=== PATIENT | male | born 1985 | race Caucasian/White ===

== ENCOUNTER 2017-04-01 14:37 | Emergency (ER) | payer OTHER ==
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
[2017-04-01 14:57] VITALS: BP 129/85
[2017-04-01] MEDS ORDERED: Ondansetron 4 MG/2 ML SDV IVPUSH ONE (15:02)
[2017-04-01] MEDS ORDERED: Sodium Chloride 0.9% 10 ML Syringe FLUSH PRN (15:02)
[2017-04-01] MEDS ORDERED: HYDROmorphone 0.5 MG/0.5 ML Syringe IVPUSH ONE (15:02)
--- NOTE | 2017-04-03 20:02 | CR ---
Cervical spine: AP, lateral and odontoid views of the cervical spine were obtained. Comparison: Previous cervical spine radiograph of 09/26/10. Slight disc space narrowing at C6-C7 is seen. Other disc spaces are maintained. Minimal calcification within the annulus is seen anteriorly at C6-C7 which is an interval change from prior exam. Slight scoliosis is noted. No abnormal subluxation. No acute fracture is noted. Plate and screws are identified within the mandible affixing old fracture which appears healed. Impression: 1. Minimal degenerative change within the cervical spine as described above. 2. Orthopedic hardware affixing an old healed mandible fracture. Diagnostic code #2
--- NOTE | 2017-04-03 20:02 | CR ---
Lumbar spine: AP, lateral and coned-down lateral views centered to the lumbosacral junction were obtained. Comparison: No prior lumbar spine study. Severe disc space narrowing noted at L4-L5. L5-S1 disc is not well seen but felt to be slightly narrowed and shows anterior osteophytes. Vertebral body heights are maintained. Pedicles are intact. No subluxation or fracture is seen. Impression: 1. Disc space narrowing at L4-L5 possibly developmental. 2. L5-S1 disc not well seen but felt to be slightly narrowed. Anterior osteophytes are seen at L5-S1. 3. Three-view lumbar spine study is otherwise unremarkable. Diagnostic code #2
--- NOTE | 2017-04-03 20:02 | CR ---
Left foot: Four views of the left foot were obtained. Comparison: No previous foot exam. Joint spaces are preserved. Mild bunion deformity is present. No acute fracture or other bony abnormality is seen. Impression: 1. Mild bunion deformity. 2. No additional abnormality is identified on left foot study. Diagnostic code #2
== END 2017-04-01 17:25 | disposition home or self-care (01) ==
LOC: JD.ED 14:37
DX: M54.5 Low back pain (principal); M54.2 Cervicalgia; M79.672 Pain in left foot; F17.210 Nicotine dependence, cigarettes, uncomplicated; Z88.1 Allergy status to other antibiotic agents; Z88.0 Allergy status to penicillin; Z88.2 Allergy status to sulfonamides; V89.2XXA Person injured in unspecified motor-vehicle accident, traffic, initial encounter; Y92.410 Unspecified street and highway as the place of occurrence of the external cause
CPT/HCPCS: 72040; 72100; 73630; 96374; 96375; 99284; J1170; J2405; J7050; 99285

== ENCOUNTER 2023-01-15 15:36 | Emergency (ER) | payer MEDICAID, OTHER ==
[2023-01-15] MEDS ORDERED: HYDROmorphone 0.5 MG/0.5 ML Syringe IVPUSH ONE (16:14)
[2023-01-15] MEDS ORDERED: Ondansetron 4 MG/2 ML SDV IVPUSH ONE (16:14)
[2023-01-15] MEDS ORDERED: Sodium Chloride 0.9% 10 ML Syringe FLUSH PRN (16:14)
[2023-01-15] MEDS ORDERED: Sodium Chloride 0.9% 1,000 ML IV STA (16:14)
[2023-01-15 17:07] LABS: APPEARANCE,URINE CLEAR (Clear); BILIRUBIN,URINE NEGATIVE (Negative); COLOR,URINE YELLOW (Yellow); GLUCOSE,URINE NEGATIVE (Negative); KETONES,URINE NEGATIVE (Negative); LEUKOCYTE ESTERASE,URINE NEGATIVE (Negative); NITRITE,URINE NEGATIVE (Negative); OCCULT BLOOD,URINE NEGATIVE (Negative); PROTEIN,URINE TRACE (Negative); UROBILINOGEN,URINE 0.2 (0.2-1.0)
[2023-01-15 17:07] LABS: BASOPHILS ABSOLUTE AUTO 0.02 K/mm3 (0.01-0.08); BASOPHILS PERCENT AUTO 0.2 % (0.1-1.2); EOSINOPHILS ABSOLUTE AUTO 0.22 K/mm3 (0.04-0.54); HEMATOCRIT 49.7 % (40.1-51.0); HEMOGLOBIN 16.9 gm/dl (13.7-17.5); IMMATURE GRAN ABSOLUTE AUTO 0.01 K/mm3 (0.00-0.10); IMMATURE GRAN PERCENT AUTO 0.1 % (<=1.0); LYMPHOCYTES ABSOLUTE AUTO 2.01 K/mm3 (1.32-3.57); LYMPHOCYTES PERCENT AUTO 18.7 % (21.8-53.1); MEAN CORPUSCULAR HEMOGLOBIN 28.9 pg (25.7-32.2); MONOCYTES ABSOLUTE AUTO 1.21 K/mm3 (0.30-0.82); MONOCYTES PERCENT AUTO 11.3 % (5.3-12.2); NEUTROPHILS ABSOLUTE AUTO 7.27 K/mm3 (1.78-5.38); NEUTROPHILS PERCENT AUTO 67.7 % (34.0-67.9); PLATELET COUNT,PLT 294 K/mm3 (163-337); RED BLOOD CELL COUNT 5.85 M/mm3 (4.63-6.08); WHITE BLOOD CELL COUNT,WBC 10.74 K/mm3 (4.23-9.07)
[2023-01-15 17:34] LABS: BACTERIA,URINE FEW /hpf (FEW); MUCUS,URINE MODERATE /hpf (FEW); RBC,URINE 0-5 /hpf (0-5); SQUAMOUS EPITHELIAL CELLS,UR NOT SEEN /hpf (0-5); WBC,URINE 0-5 /hpf (0-5)
[2023-01-15 17:35] LABS: A/G RATIO 1.1 (1-2); ALANINE AMINOTRANSFERASE,ALT 34 U/L (16-63); ALBUMIN 4.2 g/dl (3.4-5.0); ALKALINE PHOSPHATASE 73 U/L (46-116); ASPARTATE AMNIOTRANSFERASE,AST 15 U/L (15-37); BILIRUBIN TOTAL 0.4 mg/dL (0.2-1.0); BLOOD UREA NITROGEN,BUN 17 mg/dL (7-18); BUN/CREATININE RATIO 15.5 (14-18); C-REACTIVE PROTEIN <0.2 mg/dL (<1.0); CALCIUM 9.4 mg/dL (8.5-10.1); CARBON DIOXIDE,CO2 27 mEq/L (21-32); CHLORIDE,CL 104 mEq/L (98-107); CREATININE 1.1 mg/dL (0.7-1.3); EST CRCL DRUG DOSING (CG) 107.76 mL/min; ESTIMATED GFR 88 mL/min (>60); GLUCOSE RANDOM 100 mg/dL (70-99); PROTEIN TOTAL,TP 8.2 g/dl (6.4-8.2); SODIUM,NA 140 mEq/L (136-145)
[2023-01-15 18:55] LABS: C. TRACHOMATIS BY PCR NOT DETECTED; N. GONORRHOEAE BY PCR NOT DETECTED
[2023-01-15 20:06] VITALS: BP 128/78; PULSE 74
== END 2023-01-15 20:00 | disposition home or self-care (01) ==
LOC: JD.ED 15:36
DX: R10.9 Unspecified abdominal pain (principal); N50.82 Scrotal pain; Z88.0 Allergy status to penicillin; Z88.1 Allergy status to other antibiotic agents; Z88.2 Allergy status to sulfonamides; Z72.0 Tobacco use
CPT/HCPCS: 36415; 74176; 76870; 80053; 81001; 85025; 86140; 87491; 87591; 93975; 96374; 96375; 99284; J1170; J2405; J3490; J7030

== ENCOUNTER 2023-03-29 14:29 | Emergency (ER) | payer MEDICAID ==
[2023-03-29 16:00] LABS: BASOPHILS PERCENT AUTO 0.3 % (0.0-1.0); EOSINOPHILS ABSOLUTE AUTO 0.3 K/mm3 (0.0-0.4); EOSINOPHILS PERCENT AUTO 2.5 % (0.0-6.0); HEMATOCRIT 43.3 % (42.0-52.0); HEMOGLOBIN 14.6 gm/dl (14.0-18.0); IMMATURE GRAN ABSOLUTE AUTO 0.05 K/mm3 (0.00-0.05); IMMATURE GRAN PERCENT AUTO 0.5 % (0.0-0.4); LYMPHOCYTES ABSOLUTE AUTO 2.6 K/mm3 (1.0-4.8); LYMPHOCYTES PERCENT AUTO 26.2 % (24.0-44.0); MEAN CORPUSCULAR HGB CONC 33.7 g/dl (32.0-36.0); MEAN CORPUSCULAR VOLUME 86.1 fl (83.0-99.0); MEAN PLATELET VOLUME 9.1 fl (9.4-12.4); MONOCYTES ABSOLUTE AUTO 1.2 K/mm3 (0.0-0.8); NEUTROPHILS ABSOLUTE AUTO 5.9 K/mm3 (1.8-7.7); NEUTROPHILS PERCENT AUTO 58.5 % (41.0-71.0); PLATELET COUNT,PLT 243 K/mm3 (150-400); RED BLOOD CELL COUNT 5.03 M/mm3 (4.52-5.90); WHITE BLOOD CELL COUNT,WBC 10.02 K/mm3 (3.9-11.3)
[2023-03-29] MEDS ORDERED: Polyethylene Glycol 3350 Powder 17 GM Packet PO ONE (16:53)
[2023-03-29 19:55] VITALS: BP 138/103; PULSE 75
== END 2023-03-29 17:15 | disposition home or self-care (01) ==
LOC: JD.ED 14:29
DX: K64.9 Unspecified hemorrhoids (principal); K59.00 Constipation, unspecified
CPT/HCPCS: 36415; 51798; 74018; 85025; 99283; A9270; 99282

== ENCOUNTER 2023-06-15 07:01 | Day surgery (SDC) | payer MEDICAID ==
[2023-06-15 07:27] VITALS: BP 136/94; PULSE 84
[2023-06-15] MEDS ORDERED: Bupivacaine 0.5% 30 ML SDV ONE (07:42)
[2023-06-15] MEDS ORDERED: Lactated Ringers 1,000 ML IV SCH (07:45)
[2023-06-15 08:15] LABS: BARBITURATE SCREEN,URINE NEGATIVE (CUTOFF=200); BENZODIAZEPINES SCREEN,URINE NEGATIVE (CUTOFF=150); BUPRENORPHINE SCREEN,URINE NEGATIVE (CUTOFF=10); METHADONE SCREEN, URINE NEGATIVE (CUT0FF=200); METHAMPHETAMINES SCREEN, URINE PRESUMPTIVE POSITIVE (CUTOFF=500); OXYCODONE SCREEN,URINE NEGATIVE (CUT0FF=100); THC SCREEN,URINE 20 NG/ML NEGATIVE (CUTOFF=50)
[2023-06-15 08:17] LABS: AMPHETAMINES SCREEN, URINE PRESUMPTIVE POSITIVE (CUTOFF=500)
== END 2023-06-15 08:25 ==
LOC: JD.SDS 07:01
PROVIDERS: ATTEND Surgery
DX: R10.9 Unspecified abdominal pain (principal); Z53.8 Procedure and treatment not carried out for other reasons; F17.210 Nicotine dependence, cigarettes, uncomplicated; Z88.0 Allergy status to penicillin; Z88.2 Allergy status to sulfonamides; Z88.1 Allergy status to other antibiotic agents
CPT/HCPCS: 80306; J7120; 96360; J0665

== ENCOUNTER 2024-03-03 00:10 | Emergency (ER) | payer SELFPAY ==
[2024-03-03] MEDS ORDERED: Sodium Chloride 0.9% 10 ML Syringe FLUSH PRN (00:26)
[2024-03-03] MEDS: Iopamidol 612 MG/ML 30 ML SDV IVPUSH ONE (00:49)
[2024-03-03 01:08] LABS: BASOPHILS PERCENT AUTO 0.3 % (0.0-1.0); EOSINOPHILS ABSOLUTE AUTO 0.3 K/mm3 (0.0-0.4); EOSINOPHILS PERCENT AUTO 2.9 % (0.0-6.0); HEMATOCRIT 47.7 % (42.0-52.0); IMMATURE GRAN ABSOLUTE AUTO 0.04 K/mm3 (0.00-0.05); IMMATURE GRAN PERCENT AUTO 0.4 % (0.0-0.4); LYMPHOCYTES ABSOLUTE AUTO 2.3 K/mm3 (1.0-4.8); LYMPHOCYTES PERCENT AUTO 23.9 % (24.0-44.0); MEAN CORPUSCULAR HEMOGLOBIN 28.7 pg (28.0-32.0); MEAN CORPUSCULAR HGB CONC 33.5 g/dl (32.0-36.0); MEAN CORPUSCULAR VOLUME 85.6 fl (83.0-99.0); MEAN PLATELET VOLUME 9.3 fl (9.4-12.4); MONOCYTES ABSOLUTE AUTO 1.1 K/mm3 (0.0-0.8); NEUTROPHILS ABSOLUTE AUTO 5.9 K/mm3 (1.8-7.7); NEUTROPHILS PERCENT AUTO 61.5 % (41.0-71.0); PLATELET COUNT,PLT 249 K/mm3 (150-400); RED BLOOD CELL COUNT 5.57 M/mm3 (4.52-5.90); WHITE BLOOD CELL COUNT,WBC 9.54 K/mm3 (3.9-11.3)
[2024-03-03 01:25] LABS: APPEARANCE,URINE CLEAR (Clear); BILIRUBIN,URINE NEGATIVE (Negative); COLOR,URINE YELLOW (Yellow); GLUCOSE,URINE NEGATIVE (Negative); KETONES,URINE NEGATIVE (Negative); LEUKOCYTE ESTERASE,URINE NEGATIVE (Negative); NITRITE,URINE NEGATIVE (Negative); OCCULT BLOOD,URINE NEGATIVE (Negative); PROTEIN,URINE 1+ (Negative); UROBILINOGEN,URINE 0.2 (0.2-1.0)
[2024-03-03 01:28] LABS: A/G RATIO 1.2 (1-2); ALBUMIN 3.8 g/dl (3.4-5.0); ANION GAP 12.3 (5-15); BILIRUBIN TOTAL 0.3 mg/dL (0.2-1.0); BUN/CREATININE RATIO 6.4 (14-18); CALCIUM 9.4 mg/dL (8.5-10.1); CREATININE 1.1 mg/dL (0.7-1.3); EST CRCL DRUG DOSING (CG) 106.69 mL/min; POTASSIUM,K 4.3 mEq/L (3.5-5.1)
[2024-03-03 01:32] LABS: BACTERIA,URINE FEW /hpf (FEW); EPITHELIAL CELLS,URINE NOT SEEN /hpf (0-5); MUCUS,URINE MODERATE /hpf (FEW); RBC,URINE 0-5 /hpf (0-5); WBC,URINE 0-5 /hpf (0-5)
[2024-03-03] MEDS: Acetaminophen/oxyCODONE 325-5 MG Tab PO ONE (01:57)
[2024-03-03 03:30] VITALS: BP 145/87; PULSE 85
== END 2024-03-03 03:16 | disposition home or self-care (01) ==
LOC: JD.ED 00:10
DX: R33.9 Retention of urine, unspecified (principal); Z88.0 Allergy status to penicillin; Z88.8 Allergy status to other drugs, medicaments and biological substances; Z79.899 Other long term (current) drug therapy
CPT/HCPCS: 36415; 74176; 80053; 81001; 85025; 99284; A9270

== ENCOUNTER 2024-05-06 13:32 | Emergency (ER) | payer SELFPAY | END 2024-05-06 15:00 | LOC: JD.ED 13:32 | DX: Z53.21 Procedure and treatment not carried out due to patient leaving prior to being seen by health care provider (principal) ==

== ENCOUNTER 2024-06-07 23:07 | Emergency (ER) | payer MEDICAID ==
[2024-06-08 00:03] VITALS: BP 157/110; PULSE 85
[2024-06-08] MEDS: Ketorolac 60 MG/2 ML SDV IM ONE (00:08)
[2024-06-08 00:17] LABS: BASOPHILS PERCENT AUTO 0.3 % (0.0-1.0); EOSINOPHILS ABSOLUTE AUTO 0.2 K/mm3 (0.0-0.4); EOSINOPHILS PERCENT AUTO 1.4 % (0.0-6.0); HEMATOCRIT 45.6 % (42.0-52.0); HEMOGLOBIN 15.9 gm/dl (14.0-18.0); IMMATURE GRAN ABSOLUTE AUTO 0.03 K/mm3 (0.00-0.05); IMMATURE GRAN PERCENT AUTO 0.3 % (0.0-0.4); LYMPHOCYTES ABSOLUTE AUTO 1.9 K/mm3 (1.0-4.8); LYMPHOCYTES PERCENT AUTO 16.9 % (24.0-44.0); MEAN CORPUSCULAR HEMOGLOBIN 28.9 pg (28.0-32.0); MEAN CORPUSCULAR HGB CONC 34.9 g/dl (32.0-36.0); MEAN CORPUSCULAR VOLUME 82.9 fl (83.0-99.0); MEAN PLATELET VOLUME 9.1 fl (9.4-12.4); NEUTROPHILS ABSOLUTE AUTO 8.1 K/mm3 (1.8-7.7); NEUTROPHILS PERCENT AUTO 72.1 % (41.0-71.0); PLATELET COUNT,PLT 235 K/mm3 (150-400); WHITE BLOOD CELL COUNT,WBC 11.27 K/mm3 (3.9-11.3)
[2024-06-08 00:38] LABS: A/G RATIO 1.1 (1-2); ALBUMIN 3.8 g/dl (3.4-5.0); ANION GAP 12.7 (5-15); BILIRUBIN TOTAL 0.5 mg/dL (0.2-1.0); BUN/CREATININE RATIO 12.5 (14-18); CALCIUM 8.8 mg/dL (8.5-10.1); CREATININE 1.2 mg/dL (0.7-1.3); EST CRCL DRUG DOSING (CG) 97.8 mL/min; POTASSIUM,K 3.7 mEq/L (3.5-5.1); PROTEIN TOTAL,TP 7.2 g/dl (6.4-8.2)
[2024-06-08 02:01] LABS: APPEARANCE,URINE CLEAR (Clear); BILIRUBIN,URINE NEGATIVE (Negative); COLOR,URINE YELLOW (Yellow); GLUCOSE,URINE NEGATIVE (Negative); KETONES,URINE NEGATIVE (Negative); LEUKOCYTE ESTERASE,URINE NEGATIVE (Negative); NITRITE,URINE NEGATIVE (Negative); OCCULT BLOOD,URINE NEGATIVE (Negative); PROTEIN,URINE 2+ (Negative); UROBILINOGEN,URINE 0.2 (0.2-1.0)
[2024-06-08 02:18] LABS: BACTERIA,URINE FEW /hpf (FEW); EPITHELIAL CELLS,URINE NOT SEEN /hpf (0-5); MUCUS,URINE MODERATE /hpf (FEW); RBC,URINE 0-5 /hpf (0-5); WBC,URINE 0-5 /hpf (0-5)
== END 2024-06-08 03:35 | disposition home or self-care (01) ==
LOC: JD.ED 23:07
DX: R10.31 Right lower quadrant pain (principal); R10.32 Left lower quadrant pain; R33.9 Retention of urine, unspecified; Z90.89 Acquired absence of other organs; Z88.0 Allergy status to penicillin; Z88.1 Allergy status to other antibiotic agents; Z88.8 Allergy status to other drugs, medicaments and biological substances; Z79.899 Other long term (current) drug therapy
CPT/HCPCS: 36415; 80053; 81001; 85025; 96372; 99284; J1885

== ENCOUNTER 2025-05-07 14:45 | Emergency (ER) | payer MEDICAID | END 2025-05-07 17:30 | disposition left against medical advice (07) | LOC: JD.ED 14:45 | DX: Z53.21 Procedure and treatment not carried out due to patient leaving prior to being seen by health care provider (principal) ==